=== PATIENT | female | born 1980 | race African-American/Black ===

== ENCOUNTER 2016-05-31 10:12 | Emergency (ER) | payer SELFPAY ==
[~2016-05-31] VITALS: Ht 160 cm; Wt 103.0 kg
[2016-05-31 10:30] VITALS: BP 129/86
[2016-05-31 10:53] LABS: BILIRUBIN,URINE NEGATIVE (NEG); GLUCOSE,URINE NEGATIVE (NEG); NITRITE,URINE NEGATIVE (NEG); PROTEIN,URINE NEGATIVE (NEG-TRACE); UROBILINOGEN,URINE 0.2 mg/dL (0.2 mg/dL)
[2016-05-31 11:10] LABS: BACTERIA,URINE 0 /HPF (0-FEW); RBC,URINE 0 /HPF (0-2); SQUAMOUS EPITHELIAL CELL,UR FEW /LPF; WBC,URINE 0 /HPF (0-4)
--- NOTE | 2016-05-31 11:17 | PHYS DOC ---
Past Medical History Past Medical History: No Pertinent History Past Surgical History: No Surgical History Smoking: Less than 1pk/day Alcohol Use: None Drug Use: None Adult General Chief Complaint Chief Complaint: URINARY RETENTION HPI HPI Patient is a 35 year old female who presents with suspicion of urinary tract infection for 2 weeks. She reports that her urine dribbles at the end of her stream of urination, which is abnormal for her. She has mild suprapubic discomfort. She denies dysuria, urinary frequency or urgency, or hematuria. She has not had fever, nausea, vomiting, or flank pain. She reports frequent UTIs. She declines any pelvic examination today, stating that she will follow-up with her OB doctor. Her OB doctor is Dr. Andrade. Review of Systems Review of Systems Constitutional: Denies fever or chills. [] GI: Denies nausea, vomiting, bloody stools or diarrhea. Reports suprapubic discomfort. : Denies dysuria, hematuria or urinary frequency. Reports dribbling of urine at the end of the stream. Musculoskeletal: Denies back pain or joint pain. [] Integument: Denies rash or skin lesions. [] Neurologic: Denies headache, focal weakness or sensory changes. [] All systems reviewed and negative unless otherwise stated in the HPI. Allergies Allergies Allergies Coded Allergies Type Severity Reaction Last Updated Verified No Known Drug Allergies 08/22/14 No Physical Exam Physical Exam Constitutional: Well developed, well nourished, no acute distress, non-toxic appearance. [] HENT: Normocephalic, atraumatic, oropharynx moist. [] Eyes: PERRLA, EOMI, conjunctiva normal, no discharge. [] Neck: Normal range of motion, no tenderness, supple, no stridor. [] Cardiovascular: Heart rate regular rhythm, no murmur. [] Lungs & Thorax: Bilateral breath sounds clear to auscultation without wheezes, rales, or rhonchi. [] Abdomen: Bowel sounds normal, soft, no tenderness, no masses, no pulsatile masses. [] Skin: Warm, dry, no erythema, no rash. [] Back: No midline tenderness, no CVA tenderness. [] Neurologic: Alert and oriented X 3, normal motor function, normal sensory function, no focal deficits noted. [] Psychologic: Affect normal, judgement normal, mood normal. [] Current Patient Data Vital Signs Vital Signs Date Time Temp Pulse Resp B/P Pulse Ox O2 Delivery O2 Flow Rate FiO2 05/31/16 10:30 98.1 100 20 99 Room Air 98.1 Lab Values Laboratory Tests Test 05/31/16 09:46 05/31/16 10:40 POC Urine HCG, Qualitative Hcg negative (Negative) Urine Collection Type Unknown Urine Color Yellow Urine Clarity Clear Urine pH 7.0 Urine Specific [place] <=1.005 Urine Protein Negativemg/dL (NEG-TRACE) Urine Glucose (UA) Negativemg/dL (NEG) Urine Ketones (Stick) Negativemg/dL (NEG) Urine Blood Trace (NEG) Urine Nitrite Negative (NEG) Urine Bilirubin Negative (NEG) Urine Urobilinogen Dipstick 0.2mg/dL (0.2 mg/dL) Urine Leukocyte Esterase Small (NEG) Urine RBC 0/HPF (0-2) Urine WBC 0/HPF (0-4) Urine Squamous Epithelial Cells Few/LPF Urine Bacteria 0/HPF (0-FEW) EKG EKG [] Radiology/Procedures Radiology/Procedures [] Course & Med Decision Making Course & Med Decision Making Pertinent Labs and Imaging studies reviewed. (See chart for details) Patient presents with urinary symptoms for 2 weeks. On exam, her abdomen is soft and nonsurgical without any tenderness. Urine is unremarkable for infection. The patient declined pelvic examination, stating that she would follow-up with her OB doctor if her symptoms persisted. She is instructed to return to the emergency department if she has any new or concerning symptoms. She verbalizes understanding and agrees with plan. Dragon Disclaimer Dragon Disclaimer This electronic medical record was generated, in whole or in part, using a voice recognition dictation system. Departure Departure Impression: Primary Impression: Suprapubic pressure Disposition: HOME, SELF-CARE Condition: STABLE Referrals: JAQUELINE GALVAN MD (PCP) Patient Instructions: Exam, Normal, Adult Additional Instructions: Your urine does not show any infection. Please follow-up with your primary care provider if your symptoms continue. Return to the emergency department if you have any new or concerning symptoms. MARTIN KOENIG May 31, 2016 11:17
== END 2016-05-31 11:36 | disposition home or self-care (01) ==
LOC: ER 10:12
DX: R10.30 Lower abdominal pain, unspecified (principal); R33.9 Retention of urine, unspecified; Z87.440 Personal history of urinary (tract) infections
CPT/HCPCS: 81001; 81025; 87086; 99284

== ENCOUNTER 2016-06-17 12:11 | Emergency (ER) | payer SELFPAY ==
[~2016-06-17] VITALS: Ht 160 cm; Wt 103.4 kg
--- NOTE | 2016-06-17 12:52 | PHYS DOC ---
Past Medical History Past Medical History: No Pertinent History Past Surgical History: Other Additional Past Surgical Histo: R lower leg frx repair, R upper arm frx repair Alcohol Use: None Drug Use: None Adult General Chief Complaint Chief Complaint: DIZZY/LIGHT HEADED [facility] HPI This is a 35-year-old female who states she has no complaints at this time. She states she's been working approximately 6 times a week and does smoke. She states her 36. There is one week away and she just wanted a "checkup ". She does state during work she can sometimes get some dizziness and lightheadedness but she admits she is not getting enough sleep at night. She states she has 6 kids at home. When asked multiple times if she has any specific complaints she denies any. She states she is a daily smoker but denies any drugs or alcohol use. Review of Systems Review of Systems Constitutional: Denies fever or chills [] Eyes: Denies change in visual acuity, redness, or eye pain [] HENT: Denies nasal congestion or sore throat [] Respiratory: Denies cough or shortness of breath [] Cardiovascular: No additional information not addressed in HPI [] GI: Denies abdominal pain, nausea, vomiting, bloody stools or diarrhea [] : Denies dysuria or hematuria [] Musculoskeletal: Denies back pain or joint pain [] Integument: Denies rash or skin lesions [] Neurologic: Denies headache, focal weakness or sensory changes [] Endocrine: Denies polyuria or polydipsia [] Allergies Allergies Allergies Coded Allergies Type Severity Reaction Last Updated Verified No Known Drug Allergies 06/17/16 No Physical Exam Physical Exam Constitutional: Well developed, well nourished, no acute distress, non-toxic appearance. [] HENT: Normocephalic, atraumatic, bilateral external ears normal, oropharynx moist, no oral exudates, nose normal. [] Eyes: PERRLA, EOMI, conjunctiva normal, no discharge. [] Neck: Normal range of motion, no tenderness, supple, no stridor. [] Cardiovascular:Heart rate regular rhythm, no murmur [] Lungs & Thorax: Bilateral breath sounds clear to auscultation [] Abdomen: Bowel sounds normal, soft, no tenderness, no masses, no pulsatile masses. [] Skin: Warm, dry, no erythema, no rash. [] Back: No tenderness, no CVA tenderness. [] Extremities: No tenderness, no cyanosis, no clubbing, ROM intact, no edema. [] Neurologic: Alert and oriented X 3, normal motor function, normal sensory function, no focal deficits noted. [] Psychologic: Affect normal, judgement normal, mood normal. [] Current Patient Data Vital Signs Vital Signs Date Time Temp Pulse Resp B/P Pulse Ox O2 Delivery O2 Flow Rate FiO2 06/17/16 12:15 98.4 103 20 142/90 100 Room Air 98.4 Lab Values Laboratory Tests Test 06/17/16 12:45 Glucose (Fingerstick) 113mg/dL (70-99) H EKG EKG [] Radiology/Procedures Radiology/Procedures [] Course & Med Decision Making Course & Med Decision Making Pertinent Labs and Imaging studies reviewed. (See chart for details) This 35-year-old female who's having subjective complaints of fatigue will be discharged with instructions to follow-up with her primary care doctor in the next several days and to attempt smoking cessation. A work note for the next several days was provided and she is instructed to go home and rest and drink plenty of fluids. She is very agreeable with this plan and will get close follow -up. Patient has no specific complaints at this time and her exam is normal and therefore I do not see an indication for any laboratory workup and the POC glucose was checked and was normal at 113. She was discharged with return precautions. Dragon Disclaimer Dragon Disclaimer This electronic medical record was generated, in whole or in part, using a voice recognition dictation system. Departure Departure Impression: Primary Impression: Fatigue Disposition: 01 HOME, SELF-CARE Admitting Physician: Other Condition: STABLE Referrals: JAQUELINE GALVAN MD (PCP) Patient Instructions: Fatigue, Smoking Cessation, Tips For Success Additional Instructions: 1. Please follow up with your primary doctor in the next 2-3 days for your fatigue. 2. Remain off work for the next 2 days 3. Drink plenty of fluids 4. Decrease your amount of smoking. Return to the ER if you develop any worsening of your symptoms of fatigue or if you develop any shortness of breath or chest pain. MANNIE TORRES DO Jun 17, 2016 12:52
[2016-06-17 13:10] VITALS: BP 150/90
== END 2016-06-17 13:15 | disposition home or self-care (01) ==
LOC: ER 12:11
DX: R53.83 Other fatigue (principal); R42 Dizziness and giddiness
CPT/HCPCS: 82947; 99283